=== PATIENT | male | born 1970 | race Caucasian/White ===

== ENCOUNTER 2018-03-19 17:41 | Inpatient (IN) | payer BC, SELFPAY ==
[2018-03-19 17:52] VITALS: BP 139/83; PULSE 71; PULSE 78; RESP 16; RESP 20; TEMP 36.9; O2SAT 94; BMI 38.1
--- NOTE | 2018-03-19 18:00 | NURSING ---
pt arrived via WC from [facility].
[2018-03-19 19:30] VITALS: BMI 38.1
--- NOTE | 2018-03-19 20:39 | PCM.HP.STD ---
Problem List (1) Shortness of breath Status: Acute (2) Acute respiratory failure Status: Acute (3) Community acquired pneumonia Status: Acute (4) Tobacco abuse Status: Chronic (5) Diabetes mellitus Status: Chronic (6) Hypertension Status: Chronic (7) Chronic pancreatitis Status: Acute History of Present Illness Date of Admission: 03/19/18 Chief Complaint: Here for rehabilitation, strengthening, prior to discharge home with significant other. The patient is a 47 year old Male with below past medical history presented to his primary care provider with cough, shortness of breath, started on antibiotics for presumed pneumonia. 03/10/2018 His condition worsened, and he was admitted to [facility] with acute respiratory failure, community acquired pneumonia. He had fever, weakness, worsening shortness of breath, and cough. He is diabetic and continues to smoke daily. He also has headache, sore throat. Patient required 100% non-rebreather mask, and was cyanotic requiring transfer to ICU. DIRECTOR MEDIA called. Patient was treated appropriately. 03/19/2018 Admit to TCU with debility, here for rehabilitation, strengthening, prior to discharge home with significant other. Past Medical History Past Medical History (Chronic Problems): Chronic Problems Tobacco abuse (Chronic) Diabetes mellitus (Chronic) Hypertension (Chronic) Home Medications: Ambulatory Orders Medication Instructions Recorded Albuterol Inhaler [Ventolin Hfa 2 puff INHALATION Q6H PRN PRN 03/19/18 (SP)] Amlodipine 10 mg PO DAILY 03/19/18 Azithromycin 500 mg PO DAILY 03/19/18 Hydrochlorothiazide 12.5 mg PO DAILY 03/19/18 Metformin HCl 500 mg PO BIDCM 03/19/18 Nicotine [Nicotine Patch] 1 each TD DAILY 03/19/18 Omeprazole [Prilosec] 10 mg PO DAILY 03/19/18 Prednisone 50 mg PO DAILY 03/19/18 Surgical History: cholecystectomy Psychiatric History: No pertinent psych hx Lives: Spouse/ Significant Other Smoking Status: Current every day smoker Tobacco Use: Cigarettes Alcohol: None Drugs: None - *Family History Maternal History Items: No pertinent history Paternal History Items: No pertinent history Review of Systems Constitutional: Denies: Chills, Fever, Weight Change HEENT: Denies: Head Aches, Sinus Congestion, Sinus Drainage Cardiovascular: Denies: Chest Pain, Palpitations Respiratory: Denies: Cough, Shortness of breath at rest, Sputum production Gastrointestinal: Denies: Abdominal Pain, Nausea, Vomiting Genitourinary: Denies: Dysuria Musculoskeletal: Denies: Joint Pain, Joint Tenderness Skin: Denies: Rash, Wounds Neurological: Denies: Numbness, Tingling, Focal weakness Psychiatric: Denies: Anxiety, Depression, Homicidal Ideations, Suicidal Ideations Hematologic/ Lymphatic: Denies: Easy Bruising, Easy Bleeding VTE Information - Inpt Only VTE Present on Admission: No VTE Mechan Device Prophylaxis: Knee High DENISE Hose VTE Pharm Prophylaxis ordered?: Yes Patient Problems: Active and Suspected Problems Shortness of breath (Acute) Acute respiratory failure (Acute) Community acquired pneumonia (Acute) Chronic pancreatitis (Acute) - Physical Exam General: Alert, Oriented x3, Cooperative HEENT: Atraumatic, PERRLA, EOMI, Normocephalic Neck: Supple, No JVD, Negative Carotid Bruits Lungs: Normal air movement, Wheezes - Scattered. Cardiovascular: Regular rate, No murmurs Abdomen: Bowel Sounds Present, Soft, Non Tender Extremities: No edema, Capillary Refill Less than 3 Seconds Skin: No rashes, No breakdown Musculoskeletal: No Tenderness to Palpation of Joints or Extremities Neurological: Cranial nerves II-XII grossly intact Psych/Mental Status: Normal Affect, Appropriate Vital Signs Temp Pulse Resp BP Pulse Ox 98.4 F 71 20 H 139/83 H 94 03/19/18 17:52 03/19/18 17:52 03/19/18 17:52 03/19/18 17:52 03/19/18 17:52 Oxygen Flow Rate (L/min) 5 Oxygen Delivery Method Nasal Cannula Weight: 127.459 kg Body Mass Index (BMI) 38.1 Assessment/Plan All Active Problems Shortness of breath (Acute) Acute respiratory failure (Acute) Community acquired pneumonia (Acute) Chronic pancreatitis (Acute) 47 year old male with below past medical history hospitalized for acute respiratory failure secondary to community acquired pneumonia, admitted to TCU with debility, here for rehabilitation, strengthening, prior to discharge home with significant other. Debility - PT/OT. Pain - Tylenol 1000MG Q8H PRN mild pain. Bowel - Miralax 17GM daily, Senna/colace 1 tablet BID, Dulcolax 10MG PO daily. Pneumonia vaccination - Administer Prevnar 13 and/or Pneumovax 23 as necessary. DVT prophylaxis - Lovenox 40MG SC daily. COPD - Albuterol MDI 2 puffs Q6H PRN. Prednisone taper. Community acquired pneumonia - Azithromycin 500MG daily thru 03/21/2018. Hypertension - Amlodipine 10MG daily, HCTZ 12.5MG daily. Diabetes Mellitus II - Metformin 500MG BID. Tobacco Abuse - Nicotine patch 21MG daily. GERD - Pantoprazole 20MG daily.
--- NOTE | 2018-03-19 20:45 | HP.PCM_ITS ---
Problem List (1) Shortness of breath Status: Acute (2) Acute respiratory failure Status: Acute (3) Community acquired pneumonia Status: Acute (4) Tobacco abuse Status: Chronic (5) Diabetes mellitus Status: Chronic (6) Hypertension Status: Chronic (7) Chronic pancreatitis Status: Acute History of Present Illness Date of Admission: 03/19/18 Chief Complaint: Here for rehabilitation, strengthening, prior to discharge home with significant other. The patient is a 47 year old Male with below past medical history presented to his primary care provider with cough, shortness of breath, started on antibiot ics for presumed pneumonia. 03/10/2018 His condition worsened, and he was admitted to [facility] with acute respiratory failure, community acquired pneumonia. He had fever, weakness, worsening shortness of breath, and cough. He is diabetic and continues to smoke daily. He also has headache, sore throat. Patient required 100% non-rebreather mask, and was cyanotic requiring transfer to ICU. BIODIESEL ENGINEERING MANAGER called. Patient was treated appropriately. 03/19/2018 Admit to TCU with debility, here for rehabilitation, strengthening, prior to discharge home with significant other. Past Medical History Past Medical History (Chronic Problems): Chronic Problems Tobacco abuse (Chronic) Diabetes mellitus (Chronic) Hypertension (Chronic) Home Medications: Ambulatory Orders Medication Instructions Recorded Albuterol Inhaler [Ventolin Hfa 2 puff INHALATION Q6H PRN PRN 03/19/18 (SP)] Amlodipine 10 mg PO DAILY 03/19/18 Azithromycin 500 mg PO DAILY 03/19/18 Hydrochlorothiazide 12.5 mg PO DAILY 03/19/18 Metformin HCl 500 mg PO BIDCM 03/19/18 Nicotine [Nicotine Patch] 1 each TD DAILY 03/19/18 Omeprazole [Prilosec] 10 mg PO DAILY 03/19/18 Prednisone 50 mg PO DAILY 03/19/18 Surgical History: cholecystectomy Psychiatric History: No pertinent psych hx Lives: Spouse/ Significant Other Smoking Status: Current every day smoker Tobacco Use: Cigarettes Alcohol: None Drugs: None - *Family History Maternal History Items: No pertinent history Paternal History Items: No pertinent history Review of Systems Constitutional: Denies: Chills, Fever, Weight Change HEENT: Denies: Head Aches, Sinus Congestion, Sinus Drainage Cardiovascular: Denies: Chest Pain, Palpitations Respiratory: Denies: Cough, Shortness of breath at rest, Sputum production Gastrointestinal: Denies: Abdominal Pain, Nausea, Vomiting Genitourinary: Denies: Dysuria Musculoskeletal: Denies: Joint Pain, Joint Tenderness Skin: Denies: Rash, Wounds Neurological: Denies: Numbness, Tingling, Focal weakness Psychiatric: Denies: Anxiety, Depression, Homicidal Ideations, Suicidal Ideations Hematologic/ Lymphatic: Denies: Easy Bruising, Easy Bleeding VTE Information - Inpt Only VTE Present on Admission: No VTE Mechan Device Prophylaxis: Knee High DENISE Hose VTE Pharm Prophylaxis ordered?: Yes Patient Problems: Active and Suspected Problems Shortness of breath (Acute) Acute respiratory failure (Acute) Community acquired pneumonia (Acute) Chronic pancreatitis (Acute) - Physical Exam General: Alert, Oriented x3, Cooperative HEENT: Atraumatic, PERRLA, EOMI, Normocephalic Neck: Supple, No JVD, Negative Carotid Bruits Lungs: Normal air movement, Wheezes - Scattered. Cardiovascular: Regular rate, No murmurs Abdomen: Bowel Sounds Present, Soft, Non Tender Extremities: No edema, Capillary Refill Less than 3 Seconds Skin: No rashes, No breakdown Musculoskeletal: No Tenderness to Palpation of Joints or Extremities Neurological: Cranial nerves II-XII grossly intact Psych/Mental Status: Normal Affect, Appropriate Vital Signs Temp Pulse Resp BP Pulse Ox 98.4 F 71 20 H 139/83 H 94 03/19/18 17:52 03/19/18 17:52 03/19/18 17:52 03/19/18 17:52 03/19/18 17:52 Oxygen Flow Rate (L/min) 5 Oxygen Delivery Method Nasal Cannula Weight: 127.459 kg Body Mass Index (BMI) 38.1 Assessment/Plan All Active Problems Shortness of breath (Acute) Acute respiratory failure (Acute) Community acquired pneumonia (Acute) Chronic pancreatitis (Acute) 47 year old male with below past medical history hospitalized for acute respiratory failure secondary to community acquired pneumonia, admitted to TCU with debility, here for rehabilitation, strengthening, prior to discharge home with significant other. * Debility - PT/OT. * Pain - Tylenol 1000MG Q8H PRN mild pain. * Bowel - Miralax 17GM daily, Senna/colace 1 tablet BID, Dulcolax 10MG PO daily. * Pneumonia vaccination - Administer Prevnar 13 and/or Pneumovax 23 as necessary. * DVT prophylaxis - Lovenox 40MG SC daily. * COPD - Albuterol MDI 2 puffs Q6H PRN. Prednisone taper. * Community acquired pneumonia - Azithromycin 500MG daily thru 03/21/2018. * Hypertension - Amlodipine 10MG daily, HCTZ 12.5MG daily. * Diabetes Mellitus II - Metformin 500MG BID. * Tobacco Abuse - Nicotine patch 21MG daily. * GERD - Pantoprazole 20MG daily.
[2018-03-19 20:50] LABS: Bedside Glucose 309 mg/dL (70-110)
[2018-03-20] MEDS: HYDROCHLOROTHIAZIDE 12.5 MG CAPSULE PO (05:23)
[2018-03-20] MEDS: amLODIPine 10 MG Tablet PO (05:23)
[2018-03-20] MEDS: Pantoprazole Sodium 20 MG Tablet PO (05:23)
[2018-03-20] MEDS: Azithromycin 250 MG Tablet 500 MG PO (05:23)
[2018-03-20 06:58] LABS: Absolute Lymphocyte Count 3.33 X10^3/ul (0.83-4.51); Absolute Neutrophil Count 15.5 X10^3/uL (2.0-7.7); Basophil# 0.03 X10^3/uL; Basophil% 0.1 % (0-1); Eosinophil# 0.16 X10^3/uL; Eosinophils% 0.8 % (0-5); Hematocrit 40.3 % (40-54); Lymphocyte # 3.33 X10^3/ul (4.0); Lymphocyte % 16.2 % (19-41); Mean Corp Hgb Conc 32.3 g/gl (32-36); Mean Corpuscular Hgb 30.2 pg (27.0-32.0); Mean Corpuscular Volume 93.7 fL (80-94); Monocyte# 1.11 X10^3/uL; Monocyte% 5.4 % (0-10); Neutrophil # 15.49 X10^3/uL (2.7-7.7); Neutrophil % 75.4 % (47-70); Platelet Count 458 K/mm3 (150-450); RBC Distribution Width CV 13.9 % (11.6-14.6); White Blood Count 20.6 K/mm3 (4.4-11.0)
[2018-03-20 06:59] LABS: POSITIVE COUNT YES; POSITIVE DIFFERENTIAL NO; POSITIVE MORPHOLOGY YES
[2018-03-20 07:00] LABS: Anion Gap 8 (5-15); BUN 19 mg/dL (7-18); BUN/Creat Ratio 21.5 RATIO (10-20); Calcium,Total 8.3 mg/dL (8.5-10.1); Chloride 103 mmol/L (98-107); Creatinine, Serum 0.88 mg/dL (0.70-1.30); EST Glomerular Filtration Rate 97 mL/min (>60); Est Glom Filt Rate - Afr Amer 118 mL/min (>60); Estimated Creatinine Clearance 112.68 ml/min; Glucose 162 mg/dL (74-106); Potassium 3.7 mmol/L (3.5-5.1); Sodium Level 141 mmol/L (136-145)
[2018-03-20 07:02] VITALS: O2SAT 94
[2018-03-20 07:26] LABS: Bedside Glucose 113 mg/dL (70-110)
[2018-03-20] MEDS: predniSONE 10 MG Tablet 20 MG PO (07:54)
[2018-03-20] MEDS: Enoxaparin 40 MG/0.4 ML Syringe SC (07:57)
[2018-03-20] MEDS: Tuberculin,Purif.prot.deriv. 50 TU/ML Vial 5 ML ID (10:34)
[2018-03-20 15:27] VITALS: BP 110/62; PULSE 72; RESP 20; TEMP 35.7; O2SAT 96
[2018-03-21] MEDS: Pantoprazole Sodium 20 MG Tablet PO (05:14)
[2018-03-21] MEDS: amLODIPine 10 MG Tablet PO (05:14)
[2018-03-21] MEDS: HYDROCHLOROTHIAZIDE 12.5 MG CAPSULE PO (05:14)
[2018-03-21] MEDS: Azithromycin 250 MG Tablet 500 MG PO (05:14)
[2018-03-21] MEDS: Enoxaparin 40 MG/0.4 ML Syringe SC (05:14)
[2018-03-21 06:31] LABS: Bedside Glucose 175 mg/dL (70-110)
[2018-03-21 06:50] VITALS: O2SAT 96
[2018-03-21] MEDS: predniSONE 10 MG Tablet 20 MG PO (10:05)
[2018-03-21 12:54] LABS: Pathologist Review Reviewed
--- NOTE | 2018-03-21 15:17 | PCM.PN.RX ---
<Luis Enrique Blandon D - Last Filed: 03/21/18 15:17> Progress Note - Pharmacy Subjective: TCU Admission Objective: Allergies No Known Allergies Allergy (Verified 03/19/18 20:51) Current Medications Generic Name Dose Route Start Last Admin Trade Name Freq PRN Reason Stop Dose Admin Acetaminophen 1,000 mg 03/19/18 20:52 Tylenol PO Q8H PRN PRN MILD PAIN (1-3/10) Albuterol Sulfate 2 puff 03/19/18 18:47 Ventolin Hfa (Sp) INHALATION Q6H PRN PRN SHORTNESS OF BREATH Amlodipine Besylate 10 mg 03/20/18 06:00 03/21/18 05:14 Norvasc PO 10 mg DAILY MARINO Administration Azithromycin 500 mg 03/20/18 06:00 03/21/18 05:14 Zithromax PO 03/21/18 23:59 500 mg DAILY MARINO Administration Bisacodyl 10 mg 03/19/18 20:52 Dulcolax PO DAILY PRN Constipation Enoxaparin Sodium 40 mg 03/20/18 06:00 03/21/18 05:14 Lovenox SC 40 mg DAILY@0600 MARINO Administration Hydrochlorothiazide 12.5 mg 03/20/18 06:00 03/21/18 05:14 Hydrochlorothiazide PO 12.5 mg DAILY MARINO Administration Metformin HCl 500 mg 03/20/18 08:00 03/21/18 10:05 Glucophage PO 500 mg BIDCM MARINO Administration Nicotine 21 mg 03/20/18 06:00 03/21/18 05:12 Nicoderm Cq (Pbkc) TRANSDERM. 21 mg DAILY MARINO Administration Pantoprazole Sodium 20 mg 03/20/18 06:00 03/21/18 05:14 Protonix PO 20 mg DAILY MARINO Administration Polyethylene Glycol 17 gm 03/20/18 06:00 03/21/18 05:14 Miralax PO Not Given DAILY MARINO Prednisone 40 mg 03/20/18 08:00 03/21/18 10:05 PO 03/28/18 07:59 40 mg DAILYCM MARINO Administration Taper Senna/Docusate Sodium 1 tablet 03/20/18 06:00 03/21/18 05:14 Senokot-S, Angie-Colace PO Not Given BID [facility] Tuberculin PPD 5 tu 03/27/18 10:00 Tubersol, Aplisol, Ppd ID 03/27/18 10:01 X1 ONE Problem List Shortness of breath (Acute) Acute respiratory failure (Acute) Community acquired pneumonia (Acute) Tobacco abuse (Chronic) Diabetes mellitus (Chronic) Hypertension (Chronic) Chronic pancreatitis (Acute) Vital Signs Temp Pulse Resp BP Pulse Ox 96.2 F L 72 20 H 110/62 96 03/20/18 15:27 03/20/18 15:27 03/20/18 15:27 03/20/18 15:27 03/21/18 06:50 Oxygen Flow Rate (L/min) 4 Oxygen Delivery Method Nasal Cannula Weight: 127.459 kg Body Mass Index (BMI) 38.1 Sodium 141 mmol/L (136-145) 03/20/18 05:15 Potassium 3.7 mmol/L (3.5-5.1) 03/20/18 05:15 Chloride 103 mmol/L (98-107) 03/20/18 05:15 Carbon Dioxide 30.0 mmol/L (21.0-32.0) 03/20/18 05:15 Anion Gap 8 (5-15) 03/20/18 05:15 BUN 19 mg/dL (7-18) H 03/20/18 05:15 Creatinine 0.88 mg/dL (0.70-1.30) 03/20/18 05:15 Est GFR (MDRD) Af Amer 118 mL/min (>60) 03/20/18 05:15 Est GFR (MDRD) Non-Af 97 mL/min (>60) 03/20/18 05:15 BUN/Creatinine Ratio 21.5 RATIO (10-20) H 03/20/18 05:15 Glucose 162 mg/dL (74-106) H 03/20/18 05:15 Assessment/Plan: 1) Pain APAP for mild pain. Continue to monitor daily pain scores, prn medication use. ) Pulm Albuterol inh prn, azithromycin, prednisone. Continue to monitor for shortness of breath. 3) HTN HCTZ, amlodipine. Continue to monitor BP/HR, electrolytes. 4) DM2 Metformin twice daily. Continue to monitor BGT, renal function. 5) GI Pantoprazole daily. Continue to monitor s/s GI distress. 6) DVT PPx Enoxaparin daily. Continue to monitor s/s bleeding/clot. Psychotropic Medications: None Unnecessary Medications: None Bowel Regimen: 7) Senna/s, PEG, prn bisacodyl. Continue to monitor prn medication use, for constipation/diarrhea. Date of Note:: 03/21/18 - Provider Comments Provider responsibility: Provider responsible to enter orders to implement recommendations <Samuel Pugh Chi - Last Filed: 03/21/18 17:42> Progress Note - Pharmacy Subjective: [] Objective: Allergies No Known Allergies Allergy (Verified 03/19/18 20:51) Current Medications Generic Name Dose Route Start Last Admin Trade Name Freq PRN Reason Stop Dose Admin Acetaminophen 1,000 mg 03/19/18 20:52 03/21/18 17:07 Tylenol PO 1,000 mg Q8H PRN PRN Administration MILD PAIN (1-3/10) Albuterol Sulfate 2 puff 03/19/18 18:47 Ventolin Hfa (Sp) INHALATION Q6H PRN PRN SHORTNESS OF BREATH Amlodipine Besylate 10 mg 03/20/18 06:00 03/21/18 05:14 Norvasc PO 10 mg DAILY MARINO Administration Azithromycin 500 mg 03/20/18 06:00 03/21/18 05:14 Zithromax PO 03/21/18 23:59 500 mg DAILY MARINO Administration Bisacodyl 10 mg 03/19/18 20:52 Dulcolax PO DAILY PRN Constipation Enoxaparin Sodium 40 mg 03/20/18 06:00 03/21/18 05:14 Lovenox SC 40 mg DAILY@0600 MARINO Administration Hydrochlorothiazide 12.5 mg 03/20/18 06:00 03/21/18 05:14 Hydrochlorothiazide PO 12.5 mg DAILY AMRINO Administration Metformin HCl 500 mg 03/20/18 08:00 03/21/18 17:05 Glucophage PO 500 mg BIDCM MARINO Administration Nicotine 21 mg 03/20/18 06:00 03/21/18 05:12 Nicoderm Cq ([facility]) TRANSDERM. 21 mg DAILY MARINO Administration Pantoprazole Sodium 20 mg 03/20/18 06:00 03/21/18 05:14 Protonix PO 20 mg DAILY MARINO Administration Polyethylene Glycol 17 gm 03/20/18 06:00 03/21/18 05:14 Miralax PO Not Given DAILY MARINO Prednisone 40 mg 03/20/18 08:00 03/21/18 10:05 PO 03/28/18 07:59 40 mg DAILYCM MARINO Administration Taper Senna/Docusate Sodium 1 tablet 03/20/18 06:00 03/21/18 17:08 Senokot-S, Angie-Colace PO Not Given BID MARINO Tuberculin PPD 5 tu 03/27/18 10:00 Tubersol, Aplisol, Ppd ID 03/27/18 10:01 X1 ONE Problem List Shortness of breath (Acute) Acute respiratory failure (Acute) Community acquired pneumonia (Acute) Tobacco abuse (Chronic) Diabetes mellitus (Chronic) Hypertension (Chronic) Chronic pancreatitis (Acute) Vital Signs Temp Pulse Resp BP Pulse Ox 98.0 F 76 18 127/75 H 94 03/21/18 16:00 03/21/18 16:00 03/21/18 16:00 03/21/18 16:00 03/21/18 16:00 Oxygen Flow Rate (L/min) 3 Oxygen Delivery Method Nasal Cannula Weight: 127.459 kg Body Mass Index (BMI) 38.1 Sodium 141 mmol/L (136-145) 03/20/18 05:15 Potassium 3.7 mmol/L (3.5-5.1) 03/20/18 05:15 Chloride 103 mmol/L (98-107) 03/20/18 05:15 Carbon Dioxide 30.0 mmol/L (21.0-32.0) 03/20/18 05:15 Anion Gap 8 (5-15) 03/20/18 05:15 BUN 19 mg/dL (7-18) H 03/20/18 05:15 Creatinine 0.88 mg/dL (0.70-1.30) 03/20/18 05:15 Est GFR (MDRD) Af Amer 118 mL/min (>60) 03/20/18 05:15 Est GFR (MDRD) Non-Af 97 mL/min (>60) 03/20/18 05:15 BUN/Creatinine Ratio 21.5 RATIO (10-20) H 03/20/18 05:15 Glucose 162 mg/dL (74-106) H 03/20/18 05:15 Assessment/Plan: Psychotropic Medications: Unnecessary Medications: Bowel Regimen: - Provider Comments Provider responsibility: Provider responsible to enter orders to implement recommendations Provider Comments to Recommendations by Pharmacy: Agree
--- NOTE | 2018-03-21 15:22 | PHA.CONS_ITS ---
<Luis Enrique Blandon D - Last Filed: 03/21/18 15:17> Progress Note - Pharmacy Subjective: TCU Admission Objective: Allergies No Known Allergies Allergy (Verified 03/19/18 20:51) Current Medications Generic Name Dose Route Start Last Admin Trade Name Freq PRN Reason Stop Dose Admin Acetaminophen 1,000 mg 03/19/18 20:52 Tylenol PO Q8H PRN PRN MILD PAIN (1-3/10) Albuterol Sulfate 2 puff 03/19/18 18:47 Ventolin Hfa (Sp) INHALATION Q6H PRN PRN SHORTNESS OF BREATH Amlodipine Besylate 10 mg 03/20/18 06:00 03/21/18 05:14 Norvasc PO 10 mg DAILY MARINO Administration Azithromycin 500 mg 03/20/18 06:00 03/21/18 05:14 Zithromax PO 03/21/18 23:59 500 mg DAILY MARINO Administration Bisacodyl 10 mg 03/19/18 20:52 Dulcolax PO DAILY PRN Constipation Enoxaparin Sodium 40 mg 03/20/18 06:00 03/21/18 05:14 Lovenox SC 40 mg DAILY@0600 MARINO Administration Hydrochlorothiazide 12.5 mg 03/20/18 06:00 03/21/18 05:14 Hydrochlorothiazide PO 12.5 mg DAILY MARINO Administration Metformin HCl 500 mg 03/20/18 08:00 03/21/18 10:05 Glucophage PO 500 mg BIDCM MARINO Administration Nicotine 21 mg 03/20/18 06:00 03/21/18 05:12 Nicoderm Cq (Pbkc) TRANSDERM. 21 mg DAILY MARINO Administration Pantoprazole Sodium 20 mg 03/20/18 06:00 03/21/18 05:14 Protonix PO 20 mg DAILY MARINO Administration Polyethylene Glycol 17 gm 03/20/18 06:00 03/21/18 05:14 Miralax PO Not Given DAILY MARINO Prednisone 40 mg 03/20/18 08:00 03/21/18 10:05 PO 03/28/18 07:59 40 mg DAILYCM MARINO Administration Taper Senna/Docusate Sodium 1 tablet 03/20/18 06:00 03/21/18 05:14 Senokot-S, Angie-Colace PO Not Given BID [facility] Tuberculin PPD 5 tu 03/27/18 10:00 Tubersol, Aplisol, Ppd ID 03/27/18 10:01 X1 ONE Problem List Shortness of breath (Acute) Acute respiratory failure (Acute) Community acquired pneumonia (Acute) Tobacco abuse (Chronic) Diabetes mellitus (Chronic) Hypertension (Chronic) Chronic pancreatitis (Acute) Vital Signs Temp Pulse Resp BP Pulse Ox 96.2 F L 72 20 H 110/62 96 03/20/18 15:27 03/20/18 15:27 03/20/18 15:27 03/20/18 15:27 03/21/18 06:50 Oxygen Flow Rate (L/min) 4 Oxygen Delivery Method Nasal Cannula Weight: 127.459 kg Body Mass Index (BMI) 38.1 Sodium 141 mmol/L (136-145) 03/20/18 05:15 Potassium 3.7 mmol/L (3.5-5.1) 03/20/18 05:15 Chloride 103 mmol/L (98-107) 03/20/18 05:15 Carbon Dioxide 30.0 mmol/L (21.0-32.0) 03/20/18 05:15 Anion Gap 8 (5-15) 03/20/18 05:15 BUN 19 mg/dL (7-18) H 03/20/18 05:15 Creatinine 0.88 mg/dL (0.70-1.30) 03/20/18 05:15 Est GFR (MDRD) Af Amer 118 mL/min (>60) 03/20/18 05:15 Est GFR (MDRD) Non-Af 97 mL/min (>60) 03/20/18 05:15 BUN/Creatinine Ratio 21.5 RATIO (10-20) H 03/20/18 05:15 Glucose 162 mg/dL (74-106) H 03/20/18 05:15 Assessment/Plan: 1) Pain APAP for mild pain. Continue to monitor daily pain scores, prn medication use. ) Pulm Albuterol inh prn, azithromycin, prednisone. Continue to monitor for shortn ess of breath. 3) HTN HCTZ, amlodipine. Continue to monitor BP/HR, electrolytes. 4) DM2 Metformin twice daily. Continue to monitor BGT, renal function. 5) GI Pantoprazole daily. Continue to monitor s/s GI distress. 6) DVT PPx Enoxaparin daily. Continue to monitor s/s bleeding/clot. Psychotropic Medications: None Unnecessary Medications: None Bowel Regimen: 7) Senna/s, PEG, prn bisacodyl. Continue to monitor prn medication use, for constipation/diarrhea. Date of Note:: 03/21/18 - Provider Comments Provider responsibility: Provider responsible to enter orders to implement recommendations <Samuel Pugh Chi - Last Filed: 03/21/18 17:42> Progress Note - Pharmacy Subjective: [] Objective: Allergies No Known Allergies Allergy (Verified 03/19/18 20:51) Current Medications Generic Name Dose Route Start Last Admin Trade Name Freq PRN Reason Stop Dose Admin Acetaminophen 1,000 mg 03/19/18 20:52 03/21/18 17:07 Tylenol PO 1,000 mg Q8H PRN PRN Administration MILD PAIN (1-3/10) Albuterol Sulfate 2 puff 03/19/18 18:47 Ventolin Hfa (Sp) INHALATION Q6H PRN PRN SHORTNESS OF BREATH Amlodipine Besylate 10 mg 03/20/18 06:00 03/21/18 05:14 Norvasc PO 10 mg DAILY MARINO Administration Azithromycin 500 mg 03/20/18 06:00 03/21/18 05:14 Zithromax PO 03/21/18 23:59 500 mg DAILY MARINO Administration Bisacodyl 10 mg 03/19/18 20:52 Dulcolax PO DAILY PRN Constipation Enoxaparin Sodium 40 mg 03/20/18 06:00 03/21/18 05:14 Lovenox SC 40 mg DAILY@0600 MARINO Administration Hydrochlorothiazide 12.5 mg 03/20/18 06:00 03/21/18 05:14 Hydrochlorothiazide PO 12.5 mg DAILY MARINO Administration Metformin HCl 500 mg 03/20/18 08:00 03/21/18 17:05 Glucophage PO 500 mg BIDCM MARINO Administration Nicotine 21 mg 03/20/18 06:00 03/21/18 05:12 Nicoderm Cq ([facility]) TRANSDERM. 21 mg DAILY MARINO Administration Pantoprazole Sodium 20 mg 03/20/18 06:00 03/21/18 05:14 Protonix PO 20 mg DAILY MARINO Administration Polyethylene Glycol 17 gm 03/20/18 06:00 03/21/18 05:14 Miralax PO Not Given DAILY MARINO Prednisone 40 mg 03/20/18 08:00 03/21/18 10:05 PO 03/28/18 07:59 40 mg DAILYCM MARINO Administration Taper Senna/Docusate Sodium 1 tablet 03/20/18 06:00 03/21/18 17:08 Senokot-S, Angie-Colace PO Not Given BID MARINO Tuberculin PPD 5 tu 03/27/18 10:00 Tubersol, Aplisol, Ppd ID 03/27/18 10:01 X1 ONE Problem List Shortness of breath (Acute) Acute respiratory failure (Acute) Community acquired pneumonia (Acute) Tobacco abuse (Chronic) Diabetes mellitus (Chronic) Hypertension (Chronic) Chronic pancreatitis (Acute) Vital Signs Temp Pulse Resp BP Pulse Ox 98.0 F 76 18 127/75 H 94 03/21/18 16:00 03/21/18 16:00 03/21/18 16:00 03/21/18 16:00 03/21/18 16:00 Oxygen Flow Rate (L/min) 3 Oxygen Delivery Method Nasal Cannula Weight: 127.459 kg Body Mass Index (BMI) 38.1 Sodium 141 mmol/L (136-145) 03/20/18 05:15 Potassium 3.7 mmol/L (3.5-5.1) 03/20/18 05:15 Chloride 103 mmol/L (98-107) 03/20/18 05:15 Carbon Dioxide 30.0 mmol/L (21.0-32.0) 03/20/18 05:15 Anion Gap 8 (5-15) 03/20/18 05:15 BUN 19 mg/dL (7-18) H 03/20/18 05:15 Creatinine 0.88 mg/dL (0.70-1.30) 03/20/18 05:15 Est GFR (MDRD) Af Amer 118 mL/min (>60) 03/20/18 05:15 Est GFR (MDRD) Non-Af 97 mL/min (>60) 03/20/18 05:15 BUN/Creatinine Ratio 21.5 RATIO (10-20) H 03/20/18 05:15 Glucose 162 mg/dL (74-106) H 03/20/18 05:15 Assessment/Plan: Psychotropic Medications: Unnecessary Medications: Bowel Regimen: - Provider Comments Provider responsibility: Provider responsible to enter orders to implement recommendations Provider Comments to Recommendations by Pharmacy: Agree
[2018-03-21 16:00] VITALS: BP 127/75; PULSE 76; RESP 18; TEMP 36.7; O2SAT 94
[2018-03-21] MEDS: Acetaminophen 500 MG Tablet 1000 MG PO (17:07)
[2018-03-22] MEDS: Pantoprazole Sodium 20 MG Tablet PO (04:35)
[2018-03-22] MEDS: HYDROCHLOROTHIAZIDE 12.5 MG CAPSULE PO (04:35)
[2018-03-22] MEDS: amLODIPine 10 MG Tablet PO (04:35)
[2018-03-22] MEDS: Enoxaparin 40 MG/0.4 ML Syringe SC (04:35)
--- NOTE | 2018-03-22 04:51 | NURSING ---
Pt expressing concerns about smoking cessation for spouse and self with nurse this AM. VM for SW left.
[2018-03-22 07:01] LABS: Bedside Glucose 196 mg/dL (70-110)
[2018-03-22] MEDS: predniSONE 10 MG Tablet 20 MG PO (08:32)
[2018-03-22 11:16] VITALS: O2SAT 94
[2018-03-22] MEDS: Acetaminophen 500 MG Tablet 1000 MG PO (11:26)
--- NOTE | 2018-03-22 11:28 | CASEMGMT ---
Social Work Collaborating with nursing, referral to be made to resp. therapy for smoking cessation. Chinyere GASTELUM, CORNER BEAD OPERATOR
[2018-03-22 13:24] VITALS: PULSE 76; O2SAT 96
[2018-03-22 15:15] VITALS: O2SAT 94
[2018-03-22 16:00] VITALS: BP 118/76; PULSE 75; RESP 16; TEMP 36.1; O2SAT 94
[2018-03-22] MEDS: Senna/Docusate Sodium 1 Tablet PO (16:44)
[2018-03-23] MEDS: HYDROCHLOROTHIAZIDE 12.5 MG CAPSULE PO (05:13)
[2018-03-23] MEDS: Hydrocortisone 2.5% Crm 1 APPLIC TOPICAL ×2 (05:13→17:27)
[2018-03-23] MEDS: amLODIPine 10 MG Tablet PO (05:14)
[2018-03-23] MEDS: Pantoprazole Sodium 20 MG Tablet PO (05:14)
[2018-03-23] MEDS: Enoxaparin 40 MG/0.4 ML Syringe SC (05:14)
--- NOTE | 2018-03-23 05:25 | NURSING ---
Pt noted with oxygen off at this time. Pulse ox reading 88%. Pt put on 2L at this time.
[2018-03-23 06:56] LABS: Bedside Glucose 149 mg/dL (70-110)
[2018-03-23 07:00] VITALS: O2SAT 91
[2018-03-23] MEDS: predniSONE 10 MG Tablet 20 MG PO (09:02)
--- NOTE | 2018-03-23 10:22 | CASEMGMT ---
Plan of care meeting held. Resident present as well as resident spouse. Collaborating with team and resident, discharge date set for 03/25/18 per resident request. Resident plans to discharge to home with spouse at time of discharge. Resident new on oxygen and a home oxygen test will need to be completed to confirm whether or not resident qualifies for home oxygen. Therapy recommending for resident to follow up with shaping machine operator for continued therapy. Notified nursing of home oxygen test needed. Resident with insurance update due on 03/25/18 and aware that continued stay approval is not guaranteed. Support given. Proposed discharge date: 03/25/18 PLAN: Discharge to home with spouse. Chinyere GASTELUM, WOOD MECHANIST
[2018-03-23 15:41] VITALS: BP 135/67; PULSE 68; RESP 18; TEMP 35.8; O2SAT 93
--- NOTE | 2018-03-23 21:47 | DCINST_ITS ---
- Discharge Diagnoses Current Active Problems: Current Active and Chronic Problems Shortness of breath (Acute) Acute respiratory failure (Acute) Community acquired pneumonia (Acute) Tobacco abuse (Chronic) Diabetes mellitus (Chronic) Hypertension (Chronic) Chronic pancreatitis (Acute) You will use the following diet at home:: No restrictions, Regular Your food should be the consistency of: Regular Your liquids should be the consistency of: Regular/Thin Discharge Activity: Return to Normal Activity, May Shower, Use Walker May resume sexual activity in: No Restrictions Weight Bearing Status: Weight bearing as tolerated Call your doctor if you observe: Fever of 101 or Higher, Inability to urinate, Inability to have a bowel movement, Shortness of breath, Chest pain, Uncontrolled pain Allergies/Adverse Reactions: Allergies No Known Allergies Allergy (Verified 03/19/18 20:51) Medications to take at Discharge Albuterol Inhaler [Ventolin Hfa] 2 puff INHALATION Q6H PRN PRN 03/19/18 Metformin HCl 500 mg PO BIDCM 03/19/18 Omeprazole [Prilosec] 10 mg PO DAILY 03/19/18 Acetaminophen [Tylenol] 1,000 mg PO Q8H PRN PRN tablet 03/23/18 Amlodipine [Norvasc] 10 mg PO DAILY #0 tablet 03/23/18 Hydrochlorothiazide 12.5 mg PO DAILY #0 capsule 03/23/18 Hydrocortisone 2.5% Crm [Hytone] 1 applic TOPICAL BID #1 tube 03/23/18 Nicotine [Nicotine Patch] 1 ea TD DAILY #30 patch.td24 03/23/18 The following prescriptions were given: Nicotine [Nicotine Patch] 1 ea TD DAILY #30 patch.td24 Hydrocortisone 2.5% Crm [Hytone] 1 applic TOPICAL BID #1 tube Primary Care Physician: Care Physician,No Primary [Primary Care Provider] - Please follow up with your Primary Care Physician in: 1 week. Test Results: Test results from this visit will be discussed in further detail at your follow- up appointment, if applicable. Please Follow Up With: Dr Soren Russell When: 2 weeks Proposed Discharge Date: 03/25/18
--- NOTE | 2018-03-23 21:47 | PCM.DC.SUM ---
Discharge Date and Diagnosis - Problem List Patient Problems: Active and Suspected Problems Shortness of breath (Acute) Acute respiratory failure (Acute) Community acquired pneumonia (Acute) Chronic pancreatitis (Acute) Date of Admission: 03/19/18 Date of Discharge: 03/25/18 - Primary Discharge Diagnosis Active and Suspected Problems Shortness of breath (Acute) Acute respiratory failure (Acute) Community acquired pneumonia (Acute) Chronic pancreatitis (Acute) - Secondary Discharge Diagnosis Chronic Problems Tobacco abuse (Chronic) Diabetes mellitus (Chronic) Hypertension (Chronic) Hospital Course and Treatment Imaging Results: 03/19/18 17:59 Diet: Cardiac: Calorie-Controlled How many daily calories?: 1800 calorie Labs (Last 48 Hours) 03/22/18 03/23/18 06:17 06:32 POC Glucose 196 H 149 H Operations: None Procedures: None Summary of Care Provided: The patient is a 47 year old Male with below past medical history hospitalized for acute respiratory failure secondary to community acquired pneumonia, admitted to TCU with debility, here for rehabilitation, strengthening, prior to discharge home with significant other. Discharge home with spouse. Patient Problems: Active and Suspected Problems Shortness of breath (Acute) Acute respiratory failure (Acute) Community acquired pneumonia (Acute) Chronic pancreatitis (Acute) - Physical Exam Vital Signs Temp Pulse Resp BP Pulse Ox 96.4 F L 68 18 135/67 H 93 03/23/18 15:41 03/23/18 15:41 03/23/18 15:41 03/23/18 15:41 03/23/18 15:41 Oxygen Flow Rate (L/min) 2 Oxygen Delivery Method Room Air Weight: 129.926 kg Body Mass Index (BMI) 38.1 Intake and Output for Last 24 Hours 03/21/18 03/22/18 03/23/18 23:59 23:59 23:59 Intake Total 1560 / 1560 1600 / 1600 1280 / 1280 Balance 1560 / 1560 1600 / 1600 1280 / 1280 POC Glucose 03/23/18 06:32 POC Glucose 149 H Discharge Diet: No Restrictions Discharge Activity: Return to Normal Activity, May Shower, Use Walker May resume sexual activity in: No Restrictions Weight Bearing Status: Weight bearing as tolerated Call your doctor if you observe: Fever of 101 or Higher, Inability to urinate, Inability to have a bowel movement, Shortness of breath, Chest pain, Uncontrolled pain Home Medications: Medications to take at Discharge Albuterol Inhaler [Ventolin Hfa] 2 puff INHALATION Q6H PRN PRN 03/19/18 Metformin HCl 500 mg PO BIDCM 03/19/18 Omeprazole [Prilosec] 10 mg PO DAILY 03/19/18 Acetaminophen [Tylenol] 1,000 mg PO Q8H PRN PRN tablet 03/23/18 Amlodipine [Norvasc] 10 mg PO DAILY #0 tablet 03/23/18 Hydrochlorothiazide 12.5 mg PO DAILY #0 capsule 03/23/18 Hydrocortisone 2.5% Crm [Hytone] 1 applic TOPICAL BID #1 tube 03/23/18 Nicotine [Nicotine Patch] 1 ea TD DAILY #30 patch.td24 03/23/18 Following Prescrptions Were Given to Patient: Nicotine [Nicotine Patch] 1 ea TD DAILY #30 patch.td24 Hydrocortisone 2.5% Crm [Hytone] 1 applic TOPICAL BID #1 tube Primary Care Physician: Care Physician,No Primary [Primary Care Provider] - Please follow up with your Primary Care Physician in: 1 week. Please Follow Up With: Dr Soren Russell When: 2 weeks Disposition: Home Minutes spent on discharge:: 30 Patient Condition:: Stable Medical Necessity - Tobacco Use Smoking Status: Current every day smoker Tobacco Use: Cigarettes Meaningful Use Info Meaningful Use Diagnoses (Choose all that apply): None applicable
[2018-03-24] MEDS: HYDROCHLOROTHIAZIDE 12.5 MG CAPSULE PO (05:15)
[2018-03-24] MEDS: Enoxaparin 40 MG/0.4 ML Syringe SC (05:16)
[2018-03-24] MEDS: Pantoprazole Sodium 20 MG Tablet PO (05:16)
[2018-03-24] MEDS: amLODIPine 10 MG Tablet PO (05:16)
[2018-03-24 07:11] LABS: Bedside Glucose 139 mg/dL (70-110)
[2018-03-24] MEDS: predniSONE 10 MG Tablet 20 MG PO (08:57)
[2018-03-24 12:59] VITALS: O2SAT 84; O2SAT 85; O2SAT 86
[2018-03-24 13:00] VITALS: O2SAT 90
--- NOTE | 2018-03-24 14:11 | MDS.RN ---
Pain interview for hannah 03/25/18 completed.
--- NOTE | 2018-03-24 15:22 | CASEMGMT ---
Brief interview for mental status (BIMS) and resident mood interview (PHQ-9) completed on this day. BIMS score 15. PHQ-9 score 08/10
--- NOTE | 2018-03-24 15:22 | CASEMGMT ---
Social Work Home oxygen test completed by nursing staff, resident qualifies for home oxygen. Resident made aware of results and requesting for [place] to [place] [facility] [place] aware that [place] tank will be delivered to resident room prior to resident discharge to home. Support given. Telephone call to Laisha Patton. This social science research assistant making referral for oxygen. Order faxed. Proposed discharge date: 03/25/18 PLAN: Discharge to home with spouse. Chinyere GASTELUM, WARP WORKER
[2018-03-24 15:32] VITALS: BP 118/66; PULSE 73; RESP 18; TEMP 36.4; O2SAT 93
[2018-03-25] MEDS: Enoxaparin 40 MG/0.4 ML Syringe SC (06:00)
[2018-03-25] MEDS: Pantoprazole Sodium 20 MG Tablet PO (06:01)
[2018-03-25] MEDS: HYDROCHLOROTHIAZIDE 12.5 MG CAPSULE PO (06:01)
[2018-03-25] MEDS: amLODIPine 10 MG Tablet PO (06:01)
[2018-03-25 06:50] LABS: Bedside Glucose 199 mg/dL (70-110)
[2018-03-25] MEDS: predniSONE 10 MG Tablet 20 MG PO (08:36)
[2018-03-25 10:00] VITALS: BP 126/66; PULSE 68; RESP 18; TEMP 36.3; O2SAT 93
[2018-03-25 11:15] VITALS: O2SAT 94
--- NOTE | 2018-03-25 14:27 | CASEMGMT ---
Insurance Notified insurance of resident discharge to home with spouse. Auth#[id number] Chinyere GASTELUM, WAYS OPERATOR
--- NOTE | 2018-04-01 10:06 | MDS.RN ---
Information for the mds was obtained from review of the clinical record, interview of resident, staff, and direct observation of resident's care. resident was O/1 for eating, not 3/2 as charted 03/19/18.
== END 2018-03-25 13:48 | disposition home or self-care (01) | DRG 947 ==
PROVIDERS: Admitting Provider Family Medicine Geriatric Medicine; Visit Provider Family Medicine Geriatric Medicine
DX: R53.81 Other malaise (principal); J18.9 Pneumonia, unspecified organism; J44.0 Chronic obstructive pulmonary disease with (acute) lower respiratory infection; K86.1 Other chronic pancreatitis; K21.9 Gastro-esophageal reflux disease without esophagitis; E11.9 Type 2 diabetes mellitus without complications; I10 Essential (primary) hypertension; F17.210 Nicotine dependence, cigarettes, uncomplicated
CPT/HCPCS: 36415; 80048; 82962; 85025; 97110; 97116; 97161; 97166; 97530; 97802; 99406; 99407